=== PATIENT | male | born 1985 | race Caucasian/White ===

== ENCOUNTER 2023-04-24 09:16 | Outpatient (CLI) | payer OTHER | END 2023-04-24 09:17 | disposition home or self-care (01) | LOC: CSHRAD 09:16 | PROVIDERS: ATTEND Nurse Practitioner | DX: R76.11 Nonspecific reaction to tuberculin skin test without active tuberculosis (principal) | CPT/HCPCS: 71046 ==

== ENCOUNTER 2023-06-06 14:16 | Emergency (ER) | payer OTHER | END 2023-06-06 15:36 | disposition home or self-care (01) | LOC: CSHERS 14:16 | DX: H60.93 Unspecified otitis externa, bilateral (principal); F17.210 Nicotine dependence, cigarettes, uncomplicated | CPT/HCPCS: 99282 ==